=== PATIENT | female | born 1940 | race Hispanic/Latino ===

== ENCOUNTER 2018-11-12 12:35 | Outpatient (RCR) | payer MEDICARE, OTHER ==
--- NOTE | 2018-11-12 13:00 | NUR ---
Voice/Speech Evaluation History: Ms. Blackburn is a 78year old female seen at the [facility] for a Voice and Speech Evaluation. Pt Mozambican-speaking only. Per her request, pts daughter provided translation assistance. PMH includes DM, high cholesterol, and Parkinsons Disease. Pt was initially diagnosed with PD approximately 7 years ago. Per report, the first symptom was a tremor in the middle finger of her left hand. She currently has almost constant involuntary movements of the hands and mouth. Ms. Blackburn complained that her voice is very soft and people frequently ask her to repeat herself. Pt is retired and lives at home with her . She does not have great vocal demand but would like to be understood the first time she says something. She easily gets out of breath when speaking and feels embarrassed about her voice, so much so that she frequently avoids participating in conversation. She does not c/o difficulty walking but sometimes loses her balance. Ms. Blackburn denied any difficulty swallowing. However, she reported frequent drooling. She believed this was due to the involuntary movements of her lips. Pt also reported that just recently she has noticed she sometimes forgets to swallow her saliva. Provided extensive ed re: swallowing difficulty related to Parkinsons Disease. Pt/daughter denied any coughing/choking with meals, but sometimes pt coughs with liquids. Pt and daughter did not believe that any testing of swallow safety was necessary at this time but agreed to make note of any difficulty swallowing that may occur in the future. Current medications include [id number], escitalopram oxalate, metforminesomeprazole magnesium Patient/family Goal: to be understood when she speaks Acoustic measures: Sound Pressure Level (SPL, acoustic correlate of vocal loudness) measured with a sound level meter at a distance of 40 cm from mouth during 3 voice and speech tasks revealed the following SPL numbers: AverageRangeAdult Female Norm SUSTAINED VOWELS:73 dB69-76 dB80-85 dB READIN dB66-72 dB80-85 dB CONVERSATION:68 dB65-71 dB80-85 dB LENGTH OF SUSTAINED VOWEL5.17 seconds4-6 -40 seconds These results represented conversational vocal SPL levels and reduced vocal intonation that likely significantly reduce Ms. Simms speech intelligibility and communicative effectiveness. She also has difficulty with vocal fading and reduced diaphragmatic support, lending to quiet speech. Perceptual measures: Ms. Simms functional speech intelligibility is reduced 75% of the time. The patient reported that she is not loud enough in conversation 90% of the time. Completion of the Voice Handicap Index (VHI) reveals a perception of a severe voice disorder. Oral Motor Examination: An oral motor speech exam revealed the structures and function of Ms. Simms speech mechanism to be within normal limits. Average pitch range for sustained vowel is 127-277 Hz. Normal pitch range for adult females is 225-335 Hz. Stimulability Testing: Stimulability testing was completed to determine Ms. Simms stimulability for the [facility] ([facility]) program. With stimulation and cues to increase loudness, Ms. Blackburn maintained vocal loudness during sustained vowel phonation at 81 dB, and increased her speech loudness in functional phrases to 78 dB. Length of sustained phonation was 6 seconds. Vocal quality improved with increased loudness. 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 Voice deficits included reduced loudness, reduced pitch range, and poor breath support, which contributed to an overall decrease in speech intelligibility. Based on stimulability testing, Ms. Blackburn appears to be an excellent candidate for the [facility] program. She falls below average speech production of adult females of 80-85 dB. She would benefit from training in [facility] to improve speech production including duration of speech, intelligibility, and participation in conversation in social situations. Prognosis: Good for goals secondary to high level of patient motivation Recommendations: 1. It is recommended that Ms. Blackburn participate in the [facility] program, which is comprised of 16 intensive sessions (4 days per week for 4 weeks; 60 minute sessions) of voice treatment. 2.Recommend modified barium swallow study to r/o aspiration and determine if treatment is indicated. This will be scheduled if/when pt/family report noticeable s/s of aspiration and desire objective testing. Long-Term Goal: Patient will use a loud voice to communicate effectively in daily interactions with family and friends with independence. Short-Term Goals (first 2 weeks): 1.Patient will increase vocal loudness during sustained phonation to reach a target sound pressure level of 80 dB with minimal cues measured at 40 cm from SPL instrument. 2.Patient will increase length of sustained vowel to 10-15 seconds with minimal assistance. 3.Patient will increase pitch range of sustained vowel to 85-300 Hz with minimal assistance. 4.Pt will produce common, functional phrases to promote carry-over of techniques into the home environment at a target sound pressure level of 80 dB with minimal cues measured at 40 cm from SPL instrument. 5.Patient will increase vocal loudness to reach a target sound pressure level of 80 dB while reading at the word and sentence level with minimal cues measured at 40 cm from SPL instrument. 6.Patient will increase vocal loudness to reach a target sound pressure level of 80 dB during simple, structured conversational speech with minimal cues measured at 40 cm from SPL instrument. Short-Term Goals (next 2 weeks): 1.Patient will reach a target sound pressure level of 80-85 dB measured at 40 cm from SPL instrument during sustained phonation with minimal to no cues to increase loudness and to increase duration of phonation. 2.Patient will increase length of sustained vowel to 10-15 seconds with minimal to no cues. 3.Patient will increase pitch range of sustained vowel to 85-300 Hz with minimal to no cues. 4.Pt will produce common, functional phrases to promote carry-over of techniques into the home environment at a target sound pressure level of 80 dB with minimal to no cues measured at 40 cm from SPL instrument. 5.Patient will increase vocal loudness to read a target sound pressure level of 80 dB during more complex paragraph level reading with minimal cues measured at 40 cm from CERT[employer]IED PERSONAL [employer]F instrument. 6.Patient will increase vocal loudness to reach a target sound pressure level of 80 dB during structured and unstructured conversational speech with minimal to no cues measured at 40 cm from SPL instrument. Omaira Leone M.A. CCC-CERTIFIED PERSONAL CHEF [facility] Certified Clinician Date of Eval: 11/12/18 Voice Evaluation X 60 minutes [facility] Voice Level 3
== END 2018-11-22 ==
LOC: ST 12:35
PROVIDERS: ATTEND Psychiatry & Neurology Clinical Neurophysiology
DX: G20 Parkinson's disease (principal); R26.2 Difficulty in walking, not elsewhere classified; M62.81 Muscle weakness (generalized); M19.011 Primary osteoarthritis, right shoulder; M17.11 Unilateral primary osteoarthritis, right knee; R25.1 Tremor, unspecified

== ENCOUNTER → 2018-12-11 | Outpatient (CLI) | payer MEDICARE, OTHER ==
--- NOTE | 2018-12-11 15:45 | Diagnostic Imaging Report ---
Exam: Modified barium swallow. History: Parkinson's disease with dysphagia Comparison: None available Findings: Modified barium swallow was performed in conjunction with Speech Pathology with fluoroscopic images obtained of the patient swallowing varying consistencies of barium impregnated media. Fluoroscopy time: 1.6 minutes Total dose: 2.12 mGy Impression: 1. There is flash penetration with thin liquids by straw. 2. No aspiration is noted. 3. Please also see the full report provided by the Speech Pathologist. Signed by: Dr. Shon Smith DO on 12/11/2018 3:42 PM
== END ==
LOC: DX 08:44
PROVIDERS: ATTEND Psychiatry & Neurology Clinical Neurophysiology
DX: R49.9 Unspecified voice and resonance disorder (principal); G20 Parkinson's disease; E11.9 Type 2 diabetes mellitus without complications; E78.00 Pure hypercholesterolemia, unspecified
CPT/HCPCS: 74230

== ENCOUNTER 2018-12-19 09:50 | Outpatient (RCR) | payer MEDICARE ==
--- NOTE | 2018-12-09 10:56 | NUR ---
ST NOTE: Pt cx session secondary to inclement weather, next apt 12/11/18
--- NOTE | 2018-12-12 12:02 | NUR ---
Voice/Speech Re-Evaluation History: Ms. Blackburn is a 78year old female seen at the [facility] for a Voice and Speech Evaluation. Pt Taiwanese-speaking only. Per her request, pts daughter provided translation assistance. PMH includes DM, high cholesterol, and Parkinsons Disease. Pt was initially diagnosed with PD approximately 7 years ago. Per report, the first symptom was a tremor in the middle finger of her left hand. She currently has almost constant involuntary movements of the hands and mouth. Ms. Blackburn complained that her voice is very soft and people frequently ask her to repeat herself. Pt is retired and lives at home with her . She does not have great vocal demand but would like to be understood the first time she says something. She easily gets out of breath when speaking and feels embarrassed about her voice, so much so that she frequently avoids participating in conversation. She does not c/o difficulty walking but sometimes loses her balance. Ms. Blackburn denied any difficulty swallowing. However, she reported frequent drooling. She believed this was due to the involuntary movements of her lips. Pt also reported that just recently she has noticed she sometimes forgets to swallow her saliva. Provided extensive ed re: swallowing difficulty related to Parkinsons Disease. Pt/daughter denied any coughing/choking with meals, but sometimes pt coughs with liquids. Pt and daughter agreed to have objective test of swallow with MBS on 12/11/18 and pt passed exam with no aspiration, penetration, or residue post swallow. Current medications include [id number], escitalopram oxalate, metforminesomeprazole magnesium Patient/family Goal: to be understood when she speaks Acoustic measures: Sound Pressure Level (SPL, acoustic correlate of vocal loudness) measured with a sound level meter at a distance of 40 cm from mouth during 3 voice and speech tasks revealed the following SPL numbers: Average Range Adult Female Norm Re-Evaluation Average Re-Evaluation Range SUSTAINED VOWELS: 73 dB 69-76 dB 80-85 dB 87 dB 82-90 dB READIN dB 66-72 dB 80-85 dB 82 dB 81-84 dB CONVERSATION: 68 dB 65-71 dB 80-85 dB 70 dB 65-73 dB LENGTH OF SUSTAINED VOWEL 5.17 seconds 4-6 seconds 15-25 seconds 7.23 seconds 4.4-11.8 seconds These results represented conversational vocal SPL levels and reduced vocal intonation that likely significantly reduce Ms. Simms speech intelligibility and communicative effectiveness. She also has difficulty with vocal fading and reduced diaphragmatic support, lending to quiet speech. Perceptual measures: Ms. Simms functional speech intelligibility is reduced 75% of the time. The patient reported that she is not loud enough in conversation 90% of the time. Completion of the Voice Handicap Index (VHI) reveals a perception of a severe voice disorder. Oral Motor Examination: An oral motor speech exam revealed the structures and function of Ms. Simms speech mechanism to be within normal limits. Average pitch range for sustained vowel is 127-277 Hz. Re-Evaluation of pitch range is 112-458 Hz Normal pitch range for adult females is 225-335 Hz. Stimulability Testing: Stimulability testing was completed to determine Ms. Simms stimulability for the [facility] ([facility]) program. With stimulation and cues to increase loudness, Ms. Blackburn maintained vocal loudness during sustained vowel phonation at 81 dB, and increased her speech loudness in functional phrases to 78 dB. Length of sustained phonation was 6 seconds. Vocal quality improved with increased loudness. 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 Voice deficits included reduced loudness, reduced pitch range, and poor breath support, which contributed to an overall decrease in speech intelligibility. Based on stimulability testing, Ms. Blackburn appears to be an excellent candidate for the [facility] program. She falls below average speech production of adult females of 80-85 dB. She would benefit from training in LSVT LOU[facility] to improve speech production including duration of speech, intelligibility, and participation in conversation in social situations. Prognosis: Good for goals secondary to high level of patient motivation Recommendations: 1. It is recommended that Ms. Blackburn continue to participate in the [facility] program, which is comprised of 16 intensive sessions (4 days per week for 4 weeks; 60 minute sessions) of voice treatment. 2. Recommend modified barium swallow study to r/o aspiration and determine if treatment is indicated. This will be scheduled if/when pt/family report noticeable s/s of aspiration and desire objective testing. Completed 12/11/18, please see attached report Long-Term Goal: Patient will use a loud voice to communicate effectively in daily interactions with family and friends with independence. Short-Term Goals (first 2 weeks): 1. Patient will increase vocal loudness during sustained phonation to reach a target sound pressure level of 80 dB with minimal cues measured at 40 cm from SPL instrument. Met with average of 87 dB 2. Patient will increase length of sustained vowel to 10-15 seconds with minimal assistance. Continue goal average is 7.23 seconds 3. Patient will increase pitch range of sustained vowel to 85-300 Hz with minimal assistance. continue goal 112-458 Hz 4. Pt will produce common, functional phrases to promote carry-over of techniques into the home environment at a target sound pressure level of 80 dB with minimal cues measured at 40 cm from SPL instrument. Met with average of 82 dB 5. Patient will increase vocal loudness to reach a target sound pressure level of 80 dB while reading at the word and sentence level with minimal cues measured at 40 cm from SPL instrument. Met with 82 dB average 6. Patient will increase vocal loudness to reach a target sound pressure level of 80 dB during simple, structured conversational speech with minimal cues measured at 40 cm from SPL instrument. Continue goal average is 70 dB Short-Term Goals (next 2 weeks): 1. Patient will reach a target sound pressure level of 80-85 dB measured at 40 cm from SPL instrument during sustained phonation with minimal to no cues to increase loudness and to increase duration of phonation. 2. Patient will increase length of sustained vowel to 10-15 seconds with minimal to no cues. 3. Patient will increase pitch range of sustained vowel to 85-300 Hz with minimal to no cues. 4. Pt will produce common, functional phrases to promote carry-over of techniques into the home environment at a target sound pressure level of 80 dB with minimal to no cues measured at 40 cm from SPL instrument. 5. Patient will increase vocal loudness to read a target sound pressure level of 80 dB during more complex paragraph level reading with minimal cues measured at 40 cm from [employer]ER instrument. 6. Patient will increase vocal loudness to reach a target sound pressure level of 80 dB during structured and unstructured conversational speech with minimal to no cues measured at 40 cm from SPL instrument. Valerie Carson M.S. CCC-CANE PACKER [facility] Certified Clinician Date of Eval: 6/20/19 Voice Re-Evaluation and treatment X 60 minutes [facility] Voice Level 4
== END 2018-12-22 ==
LOC: PT 09:50
PROVIDERS: ATTEND Psychiatry & Neurology Clinical Neurophysiology
DX: G20 Parkinson's disease (principal); R26.2 Difficulty in walking, not elsewhere classified; M62.81 Muscle weakness (generalized); M25.661 Stiffness of right knee, not elsewhere classified

== ENCOUNTER 2019-01-14 10:00 | Outpatient (RCR) | payer MEDICARE | END 2019-01-22 | LOC: ST 10:00 | PROVIDERS: ATTEND Psychiatry & Neurology Clinical Neurophysiology | DX: G20 Parkinson's disease (principal); M62.81 Muscle weakness (generalized); R26.2 Difficulty in walking, not elsewhere classified; M25.652 Stiffness of left hip, not elsewhere classified; M25.651 Stiffness of right hip, not elsewhere classified ==